=== PATIENT | male | born 1955 | race African-American/Black ===

== ENCOUNTER 2017-10-02 12:51 | Emergency (ER) | payer OTHER ==
[~2017-10-02] VITALS: Ht 175.3 cm; Wt 100.0 kg
[~2017-10-02 12:51] MED LIST: ALBUTEROL
[2017-10-02] MEDS ORDERED: IBUPROFEN 400MG TABLET PO ONE (17:30)
[2017-10-02] MEDS ORDERED: TETANUS, DIPHTHERIA, PERTUSSIS VAC/PF 0.5ML (>7YR OLD) IM ONE (17:30)
[2017-10-02 17:38] VITALS: BP 140/96
== END 2017-10-02 19:30 | disposition home or self-care (01) ==
LOC: ER 13:24
DX: S01.81XA Laceration without foreign body of other part of head, initial encounter (principal); F10.229 Alcohol dependence with intoxication, unspecified; J45.909 Unspecified asthma, uncomplicated; F17.200 Nicotine dependence, unspecified, uncomplicated; X58.XXXA Exposure to other specified factors, initial encounter; Y93.89 Activity, other specified; Y92.89 Other specified places as the place of occurrence of the external cause; Y99.8 Other external cause status
CPT/HCPCS: 70450; 90471; 90715; 99284